=== PATIENT | female | born 1970 | race Caucasian/White ===

== ENCOUNTER 2018-12-20 20:59 | Inpatient (IN) | payer MEDICAID ==
[~2018-12-20] VITALS: Ht 162.6 cm; Wt 109.4 kg
[2018-12-20] MEDS ORDERED: cloNIDine HCL 0.1 MG TAB PO ONE ×2 (21:30→23:15)
[2018-12-20] MEDS ORDERED: ACETAMINOPHEN/CODEINE#3 (300/30mg) TAB PO ONE (22:30)
[2018-12-20] MEDS ORDERED: cefTRIAXone SOD 1,000 MG VL IM ONE (22:30)
[2018-12-20] MEDS ORDERED: SODIUM CHLORIDE 0.9% 500 ML IV ONE (23:00)
[2018-12-20] MEDS ORDERED: CLINDAMYCIN 600MG IV 50 ML IV ONE (23:00)
[2018-12-20 23:07] LABS: Basophils # (auto) 0.1 uL; Eosinophils # (auto) 0.6 uL; Eosinophils % (auto) 6.2 % (0.0-7.0); Hematocrit 37.8 % (36.0-46.0); Neutrophils # (auto) 6.5 uL; Nucleated Red Blood Cells % 0.1 %
[2018-12-20 23:09] LABS: Basophils % (auto) 1.2 % (0.0-2.0); Hemoglobin 11.9 g/dL (12.2-16.2); Lymphocytes # (auto) 1.6 uL; Lymphocytes % (auto) 17.3 % (10.0-50.0); Mean Corpuscular Hemoglobin 25.5 pg (28.0-32.0); Mean Corpuscular Hgb Conc. 31.6 g/dL (32.0-36.0); Mean Corpuscular Volume 80.8 fL (80.0-100.0); Monocytes # (auto) 0.6 uL; Monocytes % (auto) 6.4 % (0.0-12.0); Neutrophils % (auto) 68.9 % (37.0-80.0); Platelet Count (auto) 260 10^3/uL (140-450); Red Blood Cells 4.67 10^6/uL (4.0-5.20); Red Cell Distribution Width 19.8 % (11.8-14.3); White Blood Cell 9.4 10^3/uL (4.4-10.8)
[2018-12-20] MEDS ORDERED: LIDOCAINE 1% HCL (LOCAL ANESTH.) INJ 20ML MDV ONE (23:09)
[2018-12-20 23:17] LABS: Albumin 3.4 g/dL (3.4-5.0); Calcium 8.5 mg/dL (8.5-10.1); Magnesium 2.3 mg/dL (1.6-2.6); Potassium 3.7 mmol/L (3.5-5.1)
[2018-12-20 23:23] LABS: BUN/Creatinine Ratio 17.5; Bilirubin, Total 0.3 mg/dL (0.2-1.0); Total Protein 7.3 g/dL (6.4-8.2)
[2018-12-20] MEDS ORDERED: IODIXANOL 320MG/ML 100ML BTL IV ONE (23:38)
[2018-12-21] VITALS (7 sets, daily range): BP systolic 132–144; BP diastolic 90–93
[2018-12-21] MEDS ORDERED: ASPirin 81 mg TAB PO ONE
[2018-12-21] MEDS ORDERED: METOPROLOL TARTRATE 1MG/1ML-5ML VIAL IV ONE (00:30)
[2018-12-21] MEDS ORDERED: ENALAPRILAT 1.25 MG/ML-1ML VIAL IV ONE (02:00)
[2018-12-21] MEDS ORDERED: FUROSEMIDE 40 MG/4 ML VIAL IV ONE (03:00)
[2018-12-21 03:11] LABS: Urine Bacteria FEW /hpf (None Seen); Urine Blood 3+ /uL (Negative); Urine Specific Gravity 1.029 (1.001-1.035); Urine WBC 28 /hpf (0 - 5)
[2018-12-21 03:14] LABS: Alcohol, Urine < 3.0 mg/dL (0-5); Amphetamine Screen, Urine POSITIVE (NEGATIVE); Barbiturate Scree,Urine NEGATIVE (NEGATIVE); Benzodiazephine Screen, Urine NEGATIVE (NEGATIVE); Cannabinoid Screen, Urine POSITIVE (NEGATIVE); Cocaine Screen, Urine NEGATIVE (NEGATIVE); Opiate Scree,Urine POSITIVE (NEGATIVE); Phencyclidine Screen, Urine NEGATIVE (NEGATIVE)
[2018-12-21] MEDS ORDERED: MORPHINE SULF INJ 2 MG/ML SYRINGE 1ML IV PRN (03:15)
[2018-12-21] MEDS ORDERED: NITROGLYCERIN 0.4 MG SL TAB SL PRN (03:15)
--- NOTE | 2018-12-21 04:15 | NUR ---
[facility] after SBAR received. Patient oriented to Neil maya RN, unit, room 212, bed A, and unit policies regarding patient care and visiting hours. Patient now on continuous telemetry monitoring, tele box #40 and telemetry reading on arrival to unit is SR 80. Patient placed on bedside oxygen, weighed by bedscale and encouraged to call if they need something. All questions and concerns addressed, patient verbalized understanding.
[2018-12-21] MEDS: CLINDAMYCIN 600MG IV 50 ML IV SCH ×3 (06:10→22:26)
[2018-12-21 08:12] LABS: Basophils # (auto) 0.1 uL; Basophils % (auto) 0.8 % (0.0-2.0); Eosinophils # (auto) 0.6 uL; Neutrophils # (auto) 4.9 uL; White Blood Cell 7.8 10^3/uL (4.4-10.8)
[2018-12-21 08:21] LABS: Eosinophils % (auto) 7.3 % (0.0-7.0); Hematocrit 34.4 % (36.0-46.0); Lymphocytes # (auto) 1.8 uL; Lymphocytes % (auto) 22.9 % (10.0-50.0); Mean Corpuscular Hemoglobin 25.7 pg (28.0-32.0); Mean Corpuscular Hgb Conc. 32.1 g/dL (32.0-36.0); Monocytes # (auto) 0.5 uL; Monocytes % (auto) 6.5 % (0.0-12.0); Neutrophils % (auto) 62.5 % (37.0-80.0); Nucleated Red Blood Cells % 0.1 %; Platelet Count (auto) 233 10^3/uL (140-450); Red Cell Distribution Width 19.3 % (11.8-14.3)
[2018-12-21 08:26] LABS: BUN/Creatinine Ratio 14.9; Calcium 8.1 mg/dL (8.5-10.1); Potassium 3.2 mmol/L (3.5-5.1)
[2018-12-21] MEDS: cefTRIAXone 1GM/50ML D5W 50 ML IV SCH (08:40)
[2018-12-21 08:46] LABS: Cholesterol 140 mg/dL (< 200); HDL Cholesterol 34 mg/dL (40-59); LDL Cholesterol 96 mg/dL (< 100); Triglycerides 98 mg/dL (< 150)
[2018-12-21] MEDS: FUROSEMIDE 40 MG/4 ML VIAL IV SCH (09:49)
[2018-12-21] MEDS: PANTOPRAZOLE 40 MG TAB PO SCH (09:49)
[2018-12-21] MEDS: POTASSIUM CHL 20 Meq TABLET PO SCH ×2 (09:49→22:25)
[2018-12-21] MEDS: CARVEDILOL 3.125 MG TAB PO SCH ×2 (09:50→22:25)
[2018-12-21] MEDS: ASPirin-EC 81 mg tab PO SCH (09:50)
--- NOTE | 2018-12-21 18:00 | NUR ---
Pt alert and oriented, showing no change from initial assessment. No c/o pain or discomfort during this shift. IV patent, site clear to left AC. Pt in no acute distress. Pt able to ambulate without c/o dyspnea.
--- NOTE | 2018-12-21 19:15 | NUR ---
Opening Shift Note Assumed care of patient, awake and alert. No S/S of distress/SOB or pain. Instructed on POC and to call for assist PRN, will continue to monitor for changes Q1hr and PRN.
[2018-12-21] MEDS: ATORVASTATIN 20 MG TAB PO SCH (22:25)
--- NOTE | 2018-12-22 04:35 | NUR ---
PATIENT'S BP IS 173/124. SHE IS CURRENTLY ASYMPTOMATIC. HOSPITALIST HAS BEEN PAGED.
[2018-12-22 04:45] VITALS: BP 173/124
--- NOTE | 2018-12-22 05:15 | NUR ---
Paged hospitalist again for the patient's blood pressure. Waiting on return call back.
--- NOTE | 2018-12-22 05:25 | NUR ---
NOTIFIED HOSPITALIST DUC ABOUT THE PATIENT'S ELEVATED BLOOD PRESSURE. DEPUTY FIRE CHIEF DUC STATES TO ORDER CLONIDINE 0.1MG PO ONCE.
[2018-12-22] MEDS ORDERED: cloNIDine HCL 0.1 MG TAB PO ONE (05:30)
[2018-12-22] MEDS: CLINDAMYCIN 600MG IV 50 ML IV SCH ×3 (05:34→21:45)
--- NOTE | 2018-12-22 07:02 | NUR ---
BP REASSESSMENT AFTER TAKING THE CLONIDINE, THE PATIENT'S BP IS 147/111. WILL ENDORSE TO DAY SHIFT NURSE.
[2018-12-22 07:40] LABS: Basophils # (auto) 0.1 uL; Basophils % (auto) 0.7 % (0.0-2.0); Eosinophils # (auto) 0.5 uL; Eosinophils % (auto) 6.3 % (0.0-7.0); Hematocrit 37.4 % (36.0-46.0); Hemoglobin 11.7 g/dL (12.2-16.2); Lymphocytes # (auto) 1.8 uL; Lymphocytes % (auto) 21.6 % (10.0-50.0); Mean Corpuscular Hemoglobin 25.1 pg (28.0-32.0); Mean Corpuscular Hgb Conc. 31.3 g/dL (32.0-36.0); Mean Corpuscular Volume 80.4 fL (80.0-100.0); Monocytes # (auto) 0.7 uL; Monocytes % (auto) 7.7 % (0.0-12.0); Neutrophils # (auto) 5.4 uL; Neutrophils % (auto) 63.7 % (37.0-80.0); Nucleated Red Blood Cells % 0.1 %; Platelet Count (auto) 252 10^3/uL (140-450); Red Blood Cells 4.66 10^6/uL (4.0-5.20); Red Cell Distribution Width 19.7 % (11.8-14.3); White Blood Cell 8.6 10^3/uL (4.4-10.8)
[2018-12-22 07:50] LABS: Albumin 2.7 g/dL (3.4-5.0); Calcium 8.4 mg/dL (8.5-10.1); Potassium 4.3 mmol/L (3.5-5.1)
[2018-12-22 07:53] LABS: BUN/Creatinine Ratio 23.4; Bilirubin, Total 0.3 mg/dL (0.2-1.0); Total Protein 6.1 g/dL (6.4-8.2)
[2018-12-22 08:00] VITALS: BP 174/131
[2018-12-22 09:00] VITALS: BP 141/95
[2018-12-22] MEDS: cefTRIAXone 1GM/50ML D5W 50 ML IV SCH (09:18)
[2018-12-22] MEDS: FUROSEMIDE 40 MG/4 ML VIAL IV SCH (11:00)
[2018-12-22] MEDS: CARVEDILOL 3.125 MG TAB PO SCH ×2 (11:01→21:49)
[2018-12-22] MEDS: PANTOPRAZOLE 40 MG TAB PO SCH (11:01)
[2018-12-22] MEDS: ASPirin-EC 81 mg tab PO SCH (11:01)
[2018-12-22] MEDS: POTASSIUM CHL 20 Meq TABLET PO SCH ×2 (11:01→21:47)
[2018-12-22] MEDS ORDERED: DILTIAZEM HCL 120MG ER CAP PO ONE (12:15)
[2018-12-22 13:00] VITALS: BP 161/93
--- NOTE | 2018-12-22 16:15 | NUR ---
B/P 162/[address] Lim informed. Orders received for PRN anti-hypertensive
[2018-12-22] MEDS ORDERED: LABETALOL HCL 5 MG/ML ML 20ML VIAL IV PRN (16:45)
[2018-12-22 17:00] VITALS: BP 162/116
--- NOTE | 2018-12-22 17:30 | NUR ---
Labetalol 5mg given IV for B/P 162/116. Pt denies chest pain. No other c/o pain or discomfort.
[2018-12-22] MEDS: ATORVASTATIN 20 MG TAB PO SCH (21:47)
[2018-12-22 22:23] VITALS: BP 167/100
[2018-12-23] VITALS (7 sets, daily range): BP systolic 134–164; BP diastolic 94–110
--- NOTE | 2018-12-23 05:30 | NUR ---
IV insertion IV access obtained, via clean sterile technique by inserting gauge catheter at right forearm after 2 attempt(s). IV secured properly. No trauma to site. Patient tolerated well.
[2018-12-23] MEDS: CLINDAMYCIN 600MG IV 50 ML IV SCH ×3 (05:52→22:08)
--- NOTE | 2018-12-23 07:22 | NUR ---
CLOSING NOTE The patient is resting comfortably in her bed and vitals are stable. Will endorse care to day shift RN.
[2018-12-23] MEDS ORDERED: ADENOSINE 94 MG in GIVE UN-DILUTED 0 ML IV STA (08:28)
[2018-12-23] MEDS: cefTRIAXone 1GM/50ML D5W 50 ML IV SCH (11:33)
[2018-12-23] MEDS: ASPirin-EC 81 mg tab PO SCH (11:34)
[2018-12-23] MEDS: FUROSEMIDE 40 MG/4 ML VIAL IV SCH (11:34)
[2018-12-23] MEDS: DILTIAZEM HCL 120MG ER CAP PO SCH (11:35)
[2018-12-23] MEDS: CARVEDILOL 3.125 MG TAB PO SCH ×2 (11:35→22:07)
[2018-12-23] MEDS: PANTOPRAZOLE 40 MG TAB PO SCH (11:35)
[2018-12-23] MEDS: POTASSIUM CHL 20 Meq TABLET PO SCH ×2 (11:35→22:05)
[2018-12-23] MEDS: ATORVASTATIN 20 MG TAB PO SCH (22:05)
[2018-12-24 04:40] VITALS: BP 136/87
[2018-12-24] MEDS: CLINDAMYCIN 600MG IV 50 ML IV SCH (06:25)
[2018-12-24 07:05] LABS: Potassium 4.5 mmol/L (3.5-5.1)
[2018-12-24 07:16] LABS: Albumin 3.2 g/dL (3.4-5.0); BUN/Creatinine Ratio 30.9; Bilirubin, Total 0.5 mg/dL (0.2-1.0); Calcium 8.8 mg/dL (8.5-10.1); Total Protein 7.3 g/dL (6.4-8.2)
[2018-12-24 08:16] VITALS: BP 160/100
[2018-12-24 09:00] VITALS: BP 160/100
[2018-12-24] MEDS: cefTRIAXone 1GM/50ML D5W 50 ML IV SCH (09:02)
[2018-12-24] MEDS: FUROSEMIDE 40 MG/4 ML VIAL IV SCH (09:03)
[2018-12-24] MEDS: CARVEDILOL 3.125 MG TAB PO SCH (09:04)
[2018-12-24] MEDS: ASPirin-EC 81 mg tab PO SCH (09:05)
[2018-12-24] MEDS: POTASSIUM CHL 20 Meq TABLET PO SCH (09:05)
[2018-12-24] MEDS: PANTOPRAZOLE 40 MG TAB PO SCH (09:05)
[2018-12-24] MEDS: DILTIAZEM HCL 120MG ER CAP PO SCH (09:06)
[2018-12-24] MEDS ORDERED: LABETALOL HCL 5 MG/ML ML 20ML VIAL IV ONE (09:45)
[2018-12-24 13:12] VITALS: BP 126/71
--- NOTE | 2018-12-24 14:11 | NUR ---
PATIENT DISCHARGED HOME. IV ACCESS DISCONTINUED AND TELEMETRY RETURNED TO [facility]. ALL DISCHARGE INSTRUCTIONS GIVEN AND ALL DISCHARGE PAPERWORK SIGNED.
== END 2018-12-24 14:10 | disposition home or self-care (01) | DRG 383 ==
LOC: ER 21:01 → TELE 12-21 03:05 → TELE-CENTR 12-21 03:42
PROVIDERS: ADMIT Nurse Practitioner Family; ATTEND Internal Medicine
DX: L03.211 Cellulitis of face (principal); I50.43 Acute on chronic combined systolic (congestive) and diastolic (congestive) heart failure; E44.1 Mild protein-calorie malnutrition; E66.01 Morbid (severe) obesity due to excess calories; E87.6 Hypokalemia; I11.0 Hypertensive heart disease with heart failure; D64.9 Anemia, unspecified; J44.9 Chronic obstructive pulmonary disease, unspecified; I25.10 Atherosclerotic heart disease of native coronary artery without angina pectoris; F17.210 Nicotine dependence, cigarettes, uncomplicated; I25.2 Old myocardial infarction; Z95.0 Presence of cardiac pacemaker; Z79.899 Other long term (current) drug therapy; Z84.89 Family history of other specified conditions; Z82.49 Family history of ischemic heart disease and other diseases of the circulatory system; Z68.41 Body mass index [BMI] 40.0-44.9, adult
CPT/HCPCS: 36415; 71045; 78452; 80048; 80053; 80061; 80307; 81001; 83605; 83735; 83880; 84443; 84484; 84702; 85025; 87040; 87081; 93005; 93017; 93306; 94761; 96365; 96366; 96372; 96375; G0378; J0153; J0696; J2001; J3490; Q9967